=== PATIENT | male | born 1945 | race Two or more races ===

== ENCOUNTER 2025-05-27 12:33 | Inpatient (IN) | payer OTHER ==
[~2025-05-27] VITALS: Ht 180.3 cm; Wt 66.2 kg
[2025-05-27] MEDS ORDERED: TAMS0.4C PO (13:28)
[2025-05-27] MEDS ORDERED: FERRETTS325 MG PO (13:29)
[2025-05-27] MEDS ORDERED: CENTRUM MEN 501 EACH PO (13:29)
[2025-05-27] MEDS ORDERED: NIFEDIPINE20 MG (13:30)
[2025-05-27] MEDS ORDERED: CLOPIDOGREL300 MG (13:30)
[2025-05-27] MEDS ORDERED: FOLIC ACID0.8 M1 (13:30)
[2025-05-27] MEDS ORDERED: LIPITOR20 MG PO (13:31)
[2025-05-27] MEDS ORDERED: 0.9 % SODIUM CHLORIDE 1,000 ML IV ONE (14:45)
[2025-05-27] MEDS ORDERED: METHYLPREDNISOLONE SOD SUCC 125 MG VIAL IV ONE (14:45)
[2025-05-27] MEDS ORDERED: LEVALBUTEROL HCL 1.25 MG/3 ML SOLUTION IH SCH (14:45)
[2025-05-27] MEDS ORDERED: GUAIFENESIN 100 MG/5 ML BLIST.PACK PO ONE (14:45)
[2025-05-27] MEDS ORDERED: ACETAMINOPHEN 500 MG GEL..CAP PO ONE (14:45)
[2025-05-27] MEDS ORDERED: IPRATROPIUM BROMIDE 0.5 MG/2.5 ML AMPUL.NEB IH ONE (14:45)
[2025-05-27] MEDS ORDERED: AZITHROMYCIN 500 MG VIAL IV ONE (14:45)
[2025-05-27 16:04] LABS: BASO % 0.2 % (0.1-1.2); EOS # 0.04 (0.04-0.54); EOS % 0.4 % (0.7-7.0); LYMPH # 2.17 (1.18-3.74); LYMPH % 19.4 % (19.3-53.1); MEAN PLATELET VOLUME 9.90 fl (9.4-12.4); MONO # 1.33 (0.24-0.82); MONO % 11.9 % (4.7-12.5); NEUT # 7.59 (1.56-6.13); NEUT % 67.7 % (34.0-71.1); RED CELL DISTRIBUTION WIDTH 13.2 % (11.6-14.4)
[2025-05-27 16:13] LABS: ERYTHROCYTE SEDIMENTATION RATE 22 mm/hr (0-20)
[2025-05-27 16:46] LABS: INR 1.04
[2025-05-27 16:58] LABS: ALT/SGPT 26.0 U/L (12-78); AST/SGOT 26.0 U/L (15-37); BILIRUBIN TOTAL 0.99 mg/dL (0.3-1.2); BUN CREA RATIO 15.0 (7.0-25.0); CREATININE SERUM 1.46 mg/dL (0.70-1.30); GFR 46.69; GLOBULINA 4.4 G/DL (2.4-3.5); GLUCOSE FASTING 121.0 mg/dL (65-100); OSMOLALITY SERUM 286.0 MOSM/KG (275-295)
[2025-05-27 17:29] LABS: COVID-19 AG NEGATIVE (NEGATIVE)
[2025-05-27] MEDS ORDERED: hydrALAZINE HCL 20 MG VIAL IV PRN (20:45)
[2025-05-27] MEDS ORDERED: 0.9 % SODIUM CHLORIDE 1,000 ML IV SCH (20:45)
[2025-05-27] MEDS ORDERED: ACETAMINOPHEN 325 MG TABLET PO PRN (20:45)
[2025-05-27 23:28] LABS: URINE APPEARANCE Clear; URINE BILIRRUBIN Negative (NEGATIVE); URINE BLOOD Negative; URINE COLOR Yellow; URINE GLUCOSE Negative (NEGATIVE); URINE KETONE Trace (NEGATIVE); URINE LEUKOCYTE Trace; URINE NITRATE Negative; URINE PROTEIN 30 (NEGATIVE); URINE UROBILINOGEN 1.0 E.U./dl
[2025-05-27 23:33] LABS: URINE BACTERIA 9.5 uL (0.0-1933); URINE EPITHELIAL CELLS 8.2 uL (0.0-38.8); URINE RBC 10.1 uL (0.0-20.8); URINE WBC 11.3 uL (0.0-23.2)
[2025-05-27 23:39] LABS: URINE CAST 0.14 uL (0.0-1.40)
[2025-05-28] VITALS (7 sets, daily range): BP systolic 116–126; BP diastolic 61–71; O2SAT 94–99
[2025-05-28] MEDS ORDERED: IPRATROPIUM BROMIDE 0.5 MG/2.5 ML AMPUL.NEB IH SCH
[2025-05-28] MEDS ORDERED: LEVALBUTEROL HCL 1.25 MG/3 ML SOLUTION IH SCH
[2025-05-28] MEDS ORDERED: AZITHROMYCIN 500 MG VIAL IV SCH (09:00)
[2025-05-28] MEDS ORDERED: ENOXAPARIN SODIUM 30 MG/0.3 ML SYRINGE SUBCUTANEO SCH (09:00)
[2025-05-28] MEDS ORDERED: NIFEDIPINE 30 MG TAB.SA.OSM PO SCH (09:00)
[2025-05-28] MEDS ORDERED: TAMSULOSIN HCL 0.4 MG CAP PO SCH (09:00)
[2025-05-28] MEDS ORDERED: CEFTRIAXONE SODIUM 2,000 MG in 0.9 % SODIUM CHLORIDE 100 ML IV SCH (09:00)
[2025-05-28] MEDS ORDERED: FAMOTIDINE/PF 20 MG/2 ML VIAL IV SCH (09:00)
[2025-05-28] MEDS ORDERED: GUAIFENESIN 200 MG/10 ML BLIST.PACK PO SCH (12:00)
[2025-05-28] MEDS ORDERED: ACETAMINOPHEN 500 MG GEL..CAP PO PRN (13:30)
[2025-05-29] VITALS (8 sets, daily range): BP systolic 110–147; BP diastolic 63–83; O2SAT 92–96
[2025-05-29 07:49] LABS: BASO % 0.2 % (0.1-1.2); EOS # 0.05 (0.04-0.54); EOS % 0.4 % (0.7-7.0); LYMPH # 2.19 (1.18-3.74); LYMPH % 18.9 % (19.3-53.1); MEAN PLATELET VOLUME 11.00 fl (9.4-12.4); MONO # 1.30 (0.24-0.82); MONO % 11.2 % (4.7-12.5); NEUT # 8.01 (1.56-6.13); NEUT % 69.0 % (34.0-71.1); RED CELL DISTRIBUTION WIDTH 13.5 % (11.6-14.4)
[2025-05-29 07:54] LABS: ALT/SGPT 37.0 U/L (12-78); AST/SGOT 33.0 U/L (15-37); BILIRUBIN TOTAL 0.33 mg/dL (0.3-1.2); BUN CREA RATIO 20.0 (7.0-25.0); CREATININE SERUM 1.36 mg/dL (0.70-1.30); GFR 50.68; GLOBULINA 3.0 G/DL (2.4-3.5); GLUCOSE FASTING 105.0 mg/dL (65-100); OSMOLALITY SERUM 290.0 MOSM/KG (275-295)
[2025-05-29 08:09] LABS: MYCOPLASMA PNEUMONIAE IGM NON REACTIVE (NO REACTIVE)
[2025-05-29] MEDS ORDERED: POTASSIUM BICARBONATE/CIT AC 25 MEQ TABLET.EFF PO SCH (09:00)
[2025-05-29] MEDS ORDERED: AZITHROMYCIN 500 MG VIAL IV ONE (09:22)
[2025-05-29] MEDS ORDERED: AMINO ACIDS/PROTEIN HYDROLYS 30 ML BLIST.PACK PO SCH (12:21)
[2025-05-29] MEDS ORDERED: BUDESONIDE 0.5 MG/2 ML AMPUL.NEB IH SCH (12:23)
[2025-05-29] MEDS ORDERED: RINGERS SOLUTION,LACTATED 1,000 ML IV SCH (12:30)
[2025-05-29] MEDS ORDERED: POTASSIUM CHLORIDE IN WATER 100 ML IV SCH (13:00)
[2025-05-29 15:30] LABS: FE 71.0 ug/dl (65-175)
[2025-05-29 15:44] LABS: FOLIC ACID 16.35 ng/ml (4.78-20)
[2025-05-29] MEDS ORDERED: RIVAROXABAN 10 MG TAB PO SCH (17:00)
[2025-05-29 21:03] LABS: ob NEGATIVE (NEGATIVE)
[2025-05-30] VITALS (8 sets, daily range): BP systolic 118–144; BP diastolic 72–80; O2SAT 90–99
[2025-05-30] MEDS ORDERED: AZITHROMYCIN 500 MG VIAL IV ONE (08:59)
[2025-05-30] MEDS ORDERED: CEFAZOLIN SODIUM 2,000 MG in 0.9 % SODIUM CHLORIDE 100 ML IV SCH (21:00)
[2025-05-31 01:00] VITALS: O2SAT 97
[2025-05-31 02:46] VITALS: BP 108/67
[2025-05-31 04:00] VITALS: O2SAT 93
[2025-05-31 06:11] LABS: BASO % 0.3 % (0.1-1.2); EOS # 0.18 (0.04-0.54); EOS % 2.4 % (0.7-7.0); LYMPH # 1.76 (1.18-3.74); LYMPH % 23.4 % (19.3-53.1); MEAN PLATELET VOLUME 10.20 fl (9.4-12.4); MONO # 0.99 (0.24-0.82); NEUT # 4.56 (1.56-6.13); NEUT % 60.5 % (34.0-71.1); RED CELL DISTRIBUTION WIDTH 13.1 % (11.6-14.4)
[2025-05-31 06:28] LABS: MONO % 13.1 % (4.7-12.5)
[2025-05-31 06:37] LABS: BUN CREA RATIO 22.0 (7.0-25.0); CREATININE SERUM 1.08 mg/dL (0.70-1.30); GFR 66.12; GLUCOSE FASTING 98.0 mg/dL (65-100); OSMOLALITY SERUM 285.0 MOSM/KG (275-295)
[2025-05-31] MEDS ORDERED: AZITHROMYCIN 500 MG VIAL IV ONE (08:47)
[2025-05-31] MEDS ORDERED: CEFAZOLIN SODIUM 1,000 MG VIAL ONE (08:48)
[2025-05-31] MEDS ORDERED: MOXIFLOXACIN H400 MG PO (08:50)
[2025-05-31] MEDS ORDERED: IPRATROPIU0.2 MG/1 M IH (08:51)
[2025-05-31] MEDS ORDERED: XOPENEX CO1.25 MG/0. IH (08:51)
[2025-05-31] MEDS ORDERED: TAMS0.4C PO ×2 (08:51→13:03)
[2025-05-31] MEDS ORDERED: XARELTO10 MG PO (08:52)
[2025-05-31] MEDS ORDERED: Procardia Xl 30MG TA PO (08:52)
[2025-05-31] MEDS ORDERED: FERRETTS325 MG PO (08:52)
[2025-05-31] MEDS ORDERED: LIPITOR20 MG PO (08:52)
[2025-05-31] MEDS ORDERED: BUDESONIDE0.5 MG/2 M IH (08:53)
[2025-05-31] MEDS ORDERED: GERI-TUSSI100 MG/5 M PO (08:53)
[2025-05-31] MEDS ORDERED: CENTRUM MEN 501 EACH PO (08:53)
[2025-05-31 08:59] VITALS: O2SAT 98
[2025-05-31 09:46] VITALS: BP 136/71; O2SAT 94
[2025-05-31] MEDS ORDERED: AVIDOXY100 MG PO (12:58)
[2025-05-31] MEDS ORDERED: CEFDINIR300 MG PO (12:58)
[2025-05-31] MEDS ORDERED: PROCARDIA 30 MG PO (13:06)
== END 2025-05-31 13:54 | disposition home or self-care (01) | DRG 194 ==
LOC: ER 12:34 → MEDI 21:03
PROVIDERS: Internal Medicine Infectious Disease; ADMIT Internal Medicine; ATTEND Internal Medicine
PROC: BW24ZZZ Computerized Tomography (CT Scan) of Chest and Abdomen (ICD-10-PCS; principal; 2025-05-27)
PROC: 4A12X4Z Monitoring of Cardiac Electrical Activity, External Approach (ICD-10-PCS; 2025-05-28)
DX: J18.9 Pneumonia, unspecified organism (principal); N17.9 Acute kidney failure, unspecified; D72.829 Elevated white blood cell count, unspecified; R79.82 Elevated C-reactive protein (CRP); R09.02 Hypoxemia; D64.9 Anemia, unspecified; I10 Essential (primary) hypertension; A49.01 Methicillin susceptible Staphylococcus aureus infection, unspecified site